=== PATIENT | female | born 1990 | race Caucasian/White ===

== ENCOUNTER 2021-08-26 14:36 | Emergency (ER) | payer BC, SELFPAY ==
[2021-08-26 14:38] VITALS: BP 150/110; PULSE 85; RESP 18; TEMP 36.7; O2SAT 100
--- NOTE | 2021-08-26 15:07 | ED.ALLEREA ---
HPI - Allergic Reaction General Chief complaint: Allergic Reaction Stated complaint: REACTION TO CHEMO Time Seen by Provider: 08/26/21 15:07 Source: patient Mode of arrival: ambulatory Limitations: no limitations History of Present Illness HPI narrative: Patient is a 31-year-old female with a history of ovarian cancer, diagnosed in 2018, presenting for evaluation of rash following chemotherapy. Patient notes rash on her face and scalp for past two weeks. Patient started on trematinib for chemotherapy, and has had a rash since then. Pt reports extension of rash into the nape or her neck and into her back. Patient was placed on doxycyline without improvement on her symptoms. Pt has tried some oatmeal bath, differin gel, tretinoin cream without improvement in symptoms. She is also taking venlafaxine. Pt has had no other medication changes. She has has mild nausea, vomiting and diarrhea since restarting chemotherapy. She denies wheezing, dyspnea, chest pain. Follows with Goldy Best at [facility]. Related Data Home Medications Medication Instructions Recorded Confirmed ibuprofen 200 mg capsule 200 mg PO Q6H PRN 10/03/19 06/21/20 anastrozole 1 mg tablet 1 mg PO DAILY 06/21/20 06/21/20 venlafaxine 75 mg capsule,extended 75 mg PO QPM 06/21/20 06/21/20 release 24 hr Allergies Allergy/AdvReac Type Severity Reaction Status Date / Time No Known Allergies Allergy Verified 08/26/21 14:36 Review of Systems Review of Systems: CONSTITUTIONAL: Denies fever, chills, or sweats. EYES: Denies visual changes, redness, or discharge. ENT: Denies rhinorrhea, congestion, sore throat, or otalgia. CARDIOVASCULAR: Denies chest pain, palpitations, or edema. RESPIRATORY: Denies cough or dyspnea. GASTROINTESTINAL: Denies abdominal pain, nausea, vomiting, or diarrhea. GENITOURINARY: Denies dysuria or hematuria. SKIN: Reports itching rash to face, scalp, neck MUSCULOSKELETAL: Denies back pain, joint pain, or myalgia. NEUROLOGIC: Denies headache, numbness, or weakness. [facility] Past Medical History Medical History History of ovarian cancer Surgical History Surgical History History of total hysterectomy with bilateral salpingo-oophorectomy (BSO) Hx of section 2014 Family History Family History Mother Diabetes mellitus Family history of malignant neoplasm of cervix Sibling Diabetes mellitus Social History Social History Smoking status: Never smoker Second hand tobacco smoke exposure: No Alcohol intake: never Substance use: never Substance use type: does not use Exam Narrative: GENERAL: Awake, alert, conversant HEAD: Normocephalic, atraumatic. EYES: PERRLA and EOMI. ENT: Nares clear, no rhinorrhea or epistaxis. Mucous membranes moist. NECK: Supple. CHEST: No respiratory distress, breathing even and non labored HEART: Regular rate, sinus rhythm ABDOMEN:Non distended, non tender EXTREMITIES: Normal range of motion. No edema. SKIN: Warm, dry, excoriated, papular rash to the face with scaling, crusting, no vesicles NEURO:No focal deficits. Alert and oriented x3 Course Vital Signs Vital signs: Vital Signs Temperature 36.7 C 08/26/21 14:38 Pulse Rate 85 08/26/21 14:38 Respiratory Rate 18 08/26/21 14:38 Blood Pressure 150/110 H 08/26/21 14:38 Pulse Oximetry 100 08/26/21 14:38 Temperature 36.7 C 08/26/21 14:38 Pulse Rate 85 08/26/21 14:38 Respiratory Rate 18 08/26/21 14:38 Blood Pressure 150/110 H 08/26/21 14:38 Pulse Oximetry 100 08/26/21 14:38 MDM - Allergic Reaction MDM Narrative Medical decision making narrative: Patient presented for evaluation of possible adverse reaction to her chemotherapy regimen. Patient has been on doxycycline. There are no signs of
[2021-08-26 16:04] LABS: Basophils Percent Auto 0.3 % (0.2-1.2); Eosinophils Absolute Auto 0.2 K/mm3 (0-0.3); Eosinophils Percent Auto 2.9 % (0-4.4); Hemoglobin 11.6 g/dL (12.0-15.0); Immature Granulocyte Absolute 0.01 K/mm3 (0.00-0.031); Immature Granulocyte Percent A 0.2 % (0-0.5); Lymphocytes Absolute Auto 1.68 K/mm3 (0.9-3.2); Lymphocytes Percent Auto 26.8 % (18.3-44.2); Mean Corpuscular HGB Conc 32.2 g/dl (32-36); Mean Corpuscular Hemoglobin 26.4 pg (26-34); Mean Platelet Volume 9.7 fl (7.4-10.4); Monocytes Absolute Auto 0.4 K/mm3 (0.1-0.6); Monocytes Percent Auto 6.5 % (2.6-8.5); Neutrophils Percent Auto 63.3 % (45.5-73.1); Platelet Count Result 236 k/mm3 (150-375); Red Blood Count 4.39 M/mm3 (4.2-5.4); Red Cell Distribution Width 14.7 % (11.5-14.5); White Blood Count 6.3 K/mm3 (4.5-10.0)
[2021-08-26 16:14] LABS: Anion Gap 8 mmol/L (8-16); Blood Urea Nitrogen 11 mg/dL (7-17); Calcium 9.2 mg/dL (8.4-10.2); Carbon Dioxide 28 mmol/L (22-30); Chloride 101 mmol/L (98-107); Estimated CRCL calculation 115 ml/min; Estimated Glomerular Filt Rate > 60; Glucose 96 mg/dL (65-110); Potassium 3.9 mmol/L (3.4-5.0); Sodium 137 mmol/L (137-145)
[2021-08-26] MEDS: diphenhydrAMINE HCl CAP 25 MG CAPSULE PO (16:42)
[2021-08-26 17:07] VITALS: BP 153/84; PULSE 74; RESP 18; O2SAT 100
== END 2021-08-26 17:27 | disposition home or self-care (01) ==
PROVIDERS: Emergency Provider Emergency Medicine; PCP Family Medicine
DX: L27.0 Generalized skin eruption due to drugs and medicaments taken internally (principal); T45.1X5A Adverse effect of antineoplastic and immunosuppressive drugs, initial encounter; C56.9 Malignant neoplasm of unspecified ovary
CPT/HCPCS: 36415; 80048; 85025; 87070; 87205; 99283; A9270; J1100

== ENCOUNTER 2022-05-29 21:23 | Emergency (ER) | payer OTHER, SELFPAY ==
[2022-05-29] VITALS (11 sets, daily range): BP systolic 121–136; BP diastolic 83–93; PULSE 79–91; RESP 13–24; TEMP 36.8; O2SAT 97–100
--- NOTE | ~2022-05-29 | CT_ITS ---
EXAMINATION: CT abdomen pelvis w con DATE: 05/29/2022 22:33 INDICATION: Abdominal pain. Nausea and vomiting. Ovarian cancer. TECHNIQUE: Computed tomography (CT) of the abdomen and pelvis was performed with 100 cc Omnipaque 350 intravenous contrast. The dose-length product was 758.04 mGy-cm. Automated exposure control and iterative reconstruction technique were employed. COMPARISON: No prior studies for comparison. . FINDINGS: The lung bases are unremarkable. Heart size normal. No significant pleural or pericardial e ffusion. There are abnormal peritoneal soft tissue implants in the left upper abdomen with omental th ickening. There are slight scalloping of the liver margin. There are multiple dilated loops of small bowel, consistent with obstruction. Definitive site of obstruction cannot be identified. There are mu ltiple mesenteric lymph nodes which are increased in number. There is high density appearance with a curvilinear configuration along the peritoneum inferiorly, of uncertain significance. There is abnorm al nodular appearance to the distal colon. The liver, spleen, pancreas, adrenal glands and kidneys are unremarkable. No significant vascular abn ormality. No acute osseous abnormality. IMPRESSION: 1. Probable peritoneal metastases, most likely due to known ovarian cancer. There are areas of nodula r thickening throughout the small bowel and distal colon which may represent serosal implants, which may represent a source for bowel obstruction. Reviewed, dictated and finalized at location A. IMPRESSION: 1. Probable peritoneal metastases, most likely due to known ovarian cancer. The re are areas of nodular thickening throughout the small bowel and distal colon which may represent serosal implants, which may represent a source for bowel ob struction.
--- NOTE | ~2022-05-29 | XR_ITS ---
EXAMINATION: XR abdomen NG/feed tube insert DATE: 05/30/2022 00:34 INDICATION: Small bowel obstruction. Nasogastric tube placement. TECHNIQUE: Upright AP view of the abdomen and lower chest was obtained for evaluation of feeding tube placement. COMPARISON: 05/29/2022 FINDINGS: Nasogastric tube tip in proximal side port in the body of the stomach. There are few gas-filled but n ot frankly dilated loops of small bowel in the central abdomen. No free intraperitoneal gas. Visualiz ed mid to lower lung zones are clear. Heart size is normal. The accessed port of incompletely visuali zed right-sided central venous port catheter projects over of the right hilum. IMPRESSION: 1. Nasogastric tube in the stomach. 2. Nonspecific bowel gas pattern. Reviewed, dictated and finalized at location A.
--- NOTE | 2022-05-29 21:55 | ED.GENADULT ---
HPI - General Adult General Chief complaint: Nausea/Vomiting/Diarrhea Stated complaint: vomiting, constipation Time Seen by Provider: 05/29/22 21:37 History of Present Illness HPI narrative: 32-year-old female with history of ovarian cancer with recurrence present to the emergency department for evaluation of issues with constipation associated nausea vomiting since May 20. Patient states in June she was diagnosed again with ovarian cancer. Patient is following up with Dr. Best at [place], patient is currently undergoing chemotherapy. Patient states over the last few weeks she has had increased issues with constipation. Patient does describe intermittent left upper quadrant abdominal pain. Patient states that she has been taking Senokot and MiraLAX along with a laxative tea to help with her constipation with no significant provement. Patient states she is still passing some stool and still passing flatus. Patient denies any current nausea or abdominal pain. Due to her diagnosis of cancer patient did undergo a bilateral salpingo-oophorectomy and a hysterectomy. patient denies any other significant past medical history Related Data Home Medications Medication Instructions Recorded Confirmed ibuprofen 200 mg capsule 200 mg PO Q6H PRN 10/03/19 06/21/20 anastrozole 1 mg tablet (Arimidex) 1 mg PO DAILY 06/21/20 06/21/20 venlafaxine 75 mg capsule,extended 75 mg PO QPM 06/21/20 06/21/20 release 24 hr (Effexor XR) Allergies Allergy/AdvReac Type Severity Reaction Status Date / Time No Known Allergies Allergy Verified 08/26/21 14:36 Review of Systems Review of Systems: CONSTITUTIONAL: Denies fever, chills, or sweats. EYES: Denies visual changes, redness, or discharge. ENT: Denies rhinorrhea, congestion, sore throat, or otalgia. CARDIOVASCULAR: Denies chest pain, palpitations, or edema. RESPIRATORY: Denies cough or dyspnea. GASTROINTESTINAL: Abdominal pain with intermittent nausea vomiting GENITOURINARY: Denies dysuria or hematuria. SKIN: Denies rash or itching. MUSCULOSKELETAL: Denies back pain, joint pain, or myalgia. NEUROLOGIC: Denies headache, numbness, or weakness. [facility] Past Medical History Medical History History of ovarian cancer Surgical History Surgical History History of total hysterectomy with bilateral salpingo-oophorectomy (BSO) Hx of section 2014 Family History Family History Mother Diabetes mellitus Family history of malignant neoplasm of cervix Sibling Diabetes mellitus Social History Social History Smoking status: Never smoker Second hand tobacco smoke exposure: No Alcohol intake: never Substance use: never Substance use type: does not use Exam Narrative: APPEARANCE: Well appearing, no pain, no distress, well-nourished. HEAD: normocephalic, atraumatic. EYES: PERRLA/EOMI, conjunctivae clear. NOSE: Normal no drainage NECK: Supple. No adenopathy, no masses. RESPIRATORY: Airway patent, respirations nonlabored. Clear to auscultation bilaterally, no rales, rhonchi, wheezing. CARDIOVASCULAR: Regular rate and rhythm without murmurs rubs or gallops. ABDOMINAL: Soft, nondistended, normal bowel sounds MUSCULOSKELETAL: Moves all extremities. Strength/ROM intact, No edema, No calf tenderness. NEURO: Alert. Cranial nerves II through XII intact. Grossly intact SKIN: Warm, dry. Normal Color Course Course Emergency Course: Discussed the case with Dr. Iniguez and he recommended that the patient may be better served at [facility]. This was discussed with the patient and she is agreeable for transfer. I discussed the case with [place] and patient was accepted for transfer by Dr. Best for oncology. Patient's NG tube was advanced 5 cm as recommended
[2022-05-29 22:05] LABS: Basophils Percent Auto 0.4 % (0.2-1.2); Eosinophils Percent Auto 0.1 % (0-4.4); Immature Granulocyte Absolute 0.05 K/mm3 (0.00-0.031); Immature Granulocyte Percent A 0.4 % (0-0.5); Lymphocytes Absolute Auto 0.86 K/mm3 (0.9-3.2); Lymphocytes Percent Auto 7.6 % (18.3-44.2); Mean Corpuscular HGB Conc 32.3 g/dl (32-36); Mean Corpuscular Hemoglobin 26.2 pg (26-34); Mean Corpuscular Volume 81.2 fl (80-100); Mean Platelet Volume 9.4 fl (7.4-10.4); Monocytes Absolute Auto 0.7 K/mm3 (0.1-0.6); Monocytes Percent Auto 5.8 % (2.6-8.5); Neutrophils Absolute Auto 9.7 K/mm3 (1.3-6.7); Neutrophils Percent Auto 85.7 % (45.5-73.1); Platelet Count Result 398 k/mm3 (150-375); Red Blood Count 3.82 M/mm3 (4.2-5.4); White Blood Count 11.3 K/mm3 (4.5-10.0)
[2022-05-29 22:15] LABS: Alanine Aminotransferase 28 U/L (6-35); Albumin Level 4.9 g/dL (3.5-5.1); Alkaline Phosphatase 120 U/L (38-126); Anion Gap 15 mmol/L (8-16); Aspartate Amino Transferase 35 U/L (14-36); Bilirubin,Total 0.7 mg/dL (0.2-1.3); Blood Urea Nitrogen 15 mg/dL (7-17); Calcium 9.8 mg/dL (8.4-10.2); Carbon Dioxide 27 mmol/L (22-30); Chloride 98 mmol/L (98-107); Estimated CRCL calculation 95 ml/min; Estimated Glomerular Filt Rate > 60; Glucose 135 mg/dL (65-110); Lipase 108 U/L (23-300); Potassium 3.4 mmol/L (3.4-5.0); Sodium 140 mmol/L (137-145)
[2022-05-29 22:16] LABS: Lactic Acid Reflex 0.8 mmol/L (0.7-2.0)
[2022-05-29] MEDS: SODIUM CHLORIDE 0.9% IV 1,000 ML 999 ML IV CONT (23:01)
[2022-05-29] MEDS: ONDANSETRON INJ 4 MG/2 ML VIAL IV PUSH (23:12)
[2022-05-30] VITALS (18 sets, daily range): BP systolic 126–138; BP diastolic 85–94; PULSE 78–104; RESP 13–21; O2SAT 90–100
--- NOTE | 2022-05-30 00:48 | PC.NURSE ---
This RN spoke with Rhonda at [facility] transfer center who reports COVID test will need resulted before bed placement. Bobbi VOGEL notified.
--- NOTE | 2022-05-30 01:21 | PC.NURSE ---
NG tube inserted 5 cm per verbal orders Dr Helton. Then pt connected to intermittent suction at this time
[2022-05-30 01:32] LABS: SARS-CoV-2 RNA PCR Negative
[2022-05-30 02:53] LABS: Appearance Urine Cloudy (Clear); Bilirubin Urine 1+ (Negative); Blood Urine Negative (Negative); Color Urine Amber (Yellow); Glucose Urine UA Negative (Negative); Ketones Urine 2+ mg/dL (Negative); Leukocyte Esterase Ur Negative LEU/UL (Negative); Nitrate Urine Negative (Negative); Protein Urine 1+ mg/dL (Negative); Urobilinogen Urine 0.2 mg/dL (<2.0); pH Urine 8.5 (5.0-9.0)
[2022-05-30 03:00] LABS: Mucus Urine Rare /lpf; Squamous Epithelial Cell Urine Many /hpf (Few)
[2022-05-30 03:19] LABS: Add Urine Microscopic? YES
== END 2022-05-30 04:06 | disposition short-term general hospital (02) ==
PROVIDERS: Emergency Provider Emergency Medicine; PCP Family Medicine
DX: K56.609 Unspecified intestinal obstruction, unspecified as to partial versus complete obstruction (principal); C56.9 Malignant neoplasm of unspecified ovary; Z20.822 Contact with and (suspected) exposure to COVID-19; Z90.722 Acquired absence of ovaries, bilateral; Z90.79 Acquired absence of other genital organ(s); Z90.710 Acquired absence of both cervix and uterus; Z79.899 Other long term (current) drug therapy
CPT/HCPCS: 36415; 74177; 80053; 81001; 83605; 83690; 85025; 96361; 96374; 99285; C9803; J2405; J7030; Q9967; U0003; U0005